=== PATIENT | male | born 1980 | race Caucasian/White ===

== ENCOUNTER 2019-06-04 23:07 | Emergency (ER) | payer OTHER ==
[~2019-06-04] VITALS: Ht 175.3 cm; Wt 109.5 kg
[2019-06-05 04:55] VITALS: BP 132/77
--- NOTE | 2019-06-05 09:45 | REP ---
Clinical: Trauma. Technique: AP, lateral views of the left forearm Findings: The osseous structures and joint spaces are intact and normal. There is no evidence for acute fracture or dislocation. Surrounding soft tissues are unremarkable. No subcutaneous emphysema or radiodense foreign body. Impression: No acute fracture or dislocation. Electronically Signed by Rober Virk MD 06/05/2019 09:37 A
== END 2019-06-05 04:56 | disposition home or self-care (01) ==
LOC: M ED 23:07
DX: S50.12XA Contusion of left forearm, initial encounter (principal); W22.09XA Striking against other stationary object, initial encounter; Y92.9 Unspecified place or not applicable; Y93.9 Activity, unspecified; Y99.0 Civilian activity done for income or pay

== ENCOUNTER → 2024-07-11 | Outpatient (CLI) | payer OTHER | LOC: M SLEEP 20:00 | PROVIDERS: ATTEND Physician Assistant Medical | DX: G47.33 Obstructive sleep apnea (adult) (pediatric) (principal) ==

== ENCOUNTER → 2024-08-02 | Outpatient (CLI) | payer OTHER | LOC: M WHC 07:00 | PROVIDERS: ATTEND Physician Assistant Medical | DX: N64.4 Mastodynia (principal); N62 Hypertrophy of breast | CPT/HCPCS: 77066; G0279 ==